=== PATIENT | male | born 1975 | race African-American/Black ===

== ENCOUNTER 2020-07-23 07:18 | Emergency (ER) | payer MEDICAID ==
[~2020-07-23] VITALS: Ht 190.5 cm; Wt 113.4 kg
[2020-07-23 07:34] VITALS: BP 155/96
== END 2020-07-23 09:19 | disposition home or self-care (01) ==
LOC: ER 07:18
DX: J06.9 Acute upper respiratory infection, unspecified (principal); Z20.828 Contact with and (suspected) exposure to other viral communicable diseases
CPT/HCPCS: 36415; 71045; 87426